=== PATIENT | female | born 1960 | race Caucasian/White ===

== ENCOUNTER → 2024-02-18 | Outpatient (CLI) | payer MEDICARE, OTHER ==
--- NOTE | 2024-02-18 15:24 | XR ---
EXAMINATION TYPE: XR knee limited bilateral DATE OF EXAM: 02/18/2024 3:01 PM COMPARISON: None CLINICAL INDICATION: Female, 63 years old with history of M25.562 G89.29 CHRONIC KNEE PAIN LEFT; [facility] TECHNIQUE: XR knee limited bilateral; examined in Frontal, lateral and oblique projections. FINDINGS: There is severe degeneration changes of the left knee with osteophyte formation joint space narrowing present worse in the medial aspect of the knee. No evidence of fracture. A fabella is seen posterior left knee. There is mild osteophyte formation and joint space narrowing of the right knee. No evidence of fractu re. IMPRESSION: 1. No acute osseous pathology. 2. 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 [facility], , 02/18/2024 3:22 PM
== END | disposition home or self-care (01) ==
LOC: RADXRMAIN 14:20
PROVIDERS: ATTEND Family Medicine
DX: M17.0 Bilateral primary osteoarthritis of knee (principal); G89.29 Other chronic pain

== ENCOUNTER → 2024-06-24 | Outpatient (CLI) | payer MEDICARE, OTHER ==
[2024-06-24 18:50] LABS: Microalbumin Creatinine Ratio <46 mg/g Cr (0-30); Urine Creatinine 26.3 mg/dL (28.0-217.0)
[2024-06-24 18:58] LABS: ALT 13 U/L (8-44); AST 16 U/L (13-35); Albumin/Globulin Ratio 1.29 Ratio (1.60-3.17); Alkaline Phosphatase 100 U/L (41-126); Blood Urea Nitrogen 12.4 mg/dL (9.0-27.0); Carbon Dioxide 25.7 mmol/L (21.6-31.8); Chloride 101 mmol/L (96-109); Chol/HDL Ratio 3.41 Ratio; Globulin 3.1 g/dL (1.6-3.3); Glucose 74 mg/dL (70-110); LDL Cholesterol,Calculated 71.7 mg/dL (0.0-131.0); Potassium 4.6 mmol/L (3.5-5.5); Sodium 138 mmol/L (135-145); T4, Free (Free Thyroxine) 2.23 ng/dL (0.80-1.80); Total Bilirubin 0.3 mg/dL (0.3-1.2); Total Protein 7.1 g/dL (6.2-8.2)
== END | disposition home or self-care (01) ==
LOC: LABWHC1 12:21
PROVIDERS: ATTEND Nurse Practitioner Gerontology
DX: E11.65 Type 2 diabetes mellitus with hyperglycemia (principal); E03.9 Hypothyroidism, unspecified
CPT/HCPCS: 36415; 80053; 80061; 82043; 82570; 83036; 84439; 84443

== ENCOUNTER → 2024-07-29 | Outpatient (CLI) | payer MEDICARE, OTHER ==
--- NOTE | 2024-07-29 12:08 | XR ---
EXAMINATION TYPE: XR abdomen 1V DATE OF EXAM: 07/29/2024 12:01 PM COMPARISON: None. CLINICAL INDICATION: Female, 64 years old with history of R10.84 Abd Pain, TECHNIQUE: XR abdomen 1V view(s) obtained. FINDINGS: There is a normal bowel gas pattern. High density areas overlying the left renal shadow region could be foreign bodies within fecal debris or renal stones. Fecal debris is through the descending colon. Psoas margins are normal. No organomegaly is present. IMPRESSION: 1. Renal stones or high density foreign bodies within fecal debris within the colon. [facility], , 07/29/2024 12:06 PM
[2024-07-29 15:21] LABS: Basophils # (A) 0.07 X 10*3/uL (0.00-0.10); Basophils % (A) 0.7 %; Eosinophils # (A) 0.12 X 10*3/uL (0.04-0.35); Eosinophils % (A) 1.2 %; HGB 13.2 g/dL (12.0-15.0); Lymphocytes # (A) 1.38 X 10*3/uL (0.90-5.00); Lymphocytes % (A) 14.2 %; MCH 25.7 pg (27.0-32.0); MCV 85.8 FL (80.0-97.0); Mean Platelet Volume 10.6 FL (9.5-12.2); Monocytes # (A) 0.67 X 10*3/uL (0.20-1.00); Monocytes % (A) 6.9 %; NRBC Per 100 WBC 0 X 10*3/uL (0.00-0.01); Neutrophils # (A) 7.42 X 10*3/uL (1.80-7.70); Neutrophils % (A) 76.7 %; Platelet Count 301 X 10*3/uL (140-440); RBC 5.13 X 10*6/uL (4.10-5.20); RDW 15.8 % (11.5-14.5); WBC 9.69 X 10*3/uL (4.50-10.00)
[2024-07-29 15:44] LABS: Erythrocyte Sedimentation Rate 39 mm/Hr (0-30)
[2024-07-29 15:48] LABS: Amylase 70 U/L (23-121)
[2024-07-29 15:49] LABS: ALT 12 U/L (8-44); AST 16 U/L (13-35); Albumin 3.8 g/dL (3.8-4.9); Albumin/Globulin Ratio 1.23 Ratio (1.60-3.17); Alkaline Phosphatase 104 U/L (41-126); BUN/Creat Ratio 17.67 Ratio (12.00-20.00); Blood Urea Nitrogen 15.9 mg/dL (9.0-27.0); Calcium 9.2 mg/dL (8.7-10.3); Carbon Dioxide 26.1 mmol/L (21.6-31.8); Chloride 102 mmol/L (96-109); Globulin 3.1 g/dL (1.6-3.3); Glucose 96 mg/dL (70-110); Lipase 84 U/L (14-63); Potassium 4.3 mmol/L (3.5-5.5); Sodium 139 mmol/L (135-145); Total Bilirubin 0.2 mg/dL (0.3-1.2); Total Protein 6.9 g/dL (6.2-8.2)
== END | disposition home or self-care (01) ==
LOC: RADXRMAIN 11:39
PROVIDERS: ATTEND Family Medicine
DX: R10.84 Generalized abdominal pain (principal); M79.671 Pain in right foot; M25.562 Pain in left knee; G89.29 Other chronic pain; E11.9 Type 2 diabetes mellitus without complications; E55.9 Vitamin D deficiency, unspecified
CPT/HCPCS: 74018; 80053; 82150; 82306; 83036; 83690; 84443; 85025; 85652

== ENCOUNTER → 2024-08-31 | Outpatient (CLI) | payer MEDICARE, OTHER ==
[2024-08-31 18:55] LABS: ALT 12 U/L (8-44); AST 15 U/L (13-35); Albumin/Globulin Ratio 1.43 Ratio (1.60-3.17); Alkaline Phosphatase 102 U/L (41-126); Amylase 50 U/L (23-121); BUN/Creat Ratio 11.89 Ratio (12.00-20.00); Blood Urea Nitrogen 10.7 mg/dL (9.0-27.0); Calcium 9.2 mg/dL (8.7-10.3); Carbon Dioxide 23.1 mmol/L (21.6-31.8); Chloride 102 mmol/L (96-109); Globulin 2.8 g/dL (1.6-3.3); Glucose 137 mg/dL (70-110); Lipase 30 U/L (14-63); Potassium 4.4 mmol/L (3.5-5.5); Sodium 138 mmol/L (135-145); Total Bilirubin 0.3 mg/dL (0.3-1.2); Total Protein 6.8 g/dL (6.2-8.2)
[2024-08-31 21:39] LABS: Basophils # (A) 0.07 X 10*3/uL (0.00-0.10); Basophils % (A) 0.7 %; HCT 46.8 % (37.2-46.3); HGB 14.2 g/dL (12.0-15.0); Lymphocytes # (A) 1.49 X 10*3/uL (0.90-5.00); Lymphocytes % (A) 15.2 %; MCHC 30.3 g/dL (32.0-37.0); MCV 85.6 FL (80.0-97.0); Mean Platelet Volume 11.3 FL (9.5-12.2); Monocytes # (A) 0.67 X 10*3/uL (0.20-1.00); Monocytes % (A) 6.9 %; NRBC Per 100 WBC 0 X 10*3/uL (0.00-0.01); Neutrophils # (A) 7.42 X 10*3/uL (1.80-7.70); Neutrophils % (A) 75.9 %; Platelet Count 288 X 10*3/uL (140-440); RBC 5.47 X 10*6/uL (4.10-5.20); WBC 9.78 X 10*3/uL (4.50-10.00)
[2024-09-01 01:43] LABS: Erythrocyte Sedimentation Rate 42 mm/Hr (0-30)
== END | disposition home or self-care (01) ==
LOC: LABWHC1 12:35
PROVIDERS: ATTEND Family Medicine
DX: K50.90 Crohn's disease, unspecified, without complications (principal); E11.9 Type 2 diabetes mellitus without complications; E55.9 Vitamin D deficiency, unspecified; R10.84 Generalized abdominal pain
CPT/HCPCS: 36415; 80053; 82150; 82306; 83690; 84443; 85025; 85652; 86140